=== PATIENT | female | born 1975 | race Caucasian/White ===

== ENCOUNTER → 2016-10-21 | Outpatient (CLI) | payer BC ==
--- NOTE | 2016-10-22 14:45 | Diagnostic Imaging Report ---
Thyroid scan and uptake Technique: After the oral administration of 200 ?Ci of I-123 capsule, 4 hour and 24-hour uptake is measured and plantar images over the thyroid gland obtained. Indication: Goiter FINDINGS: Thyroid uptake at 4 hours is 10 %, and the at 24 hours is 26 %. Planar images demonstrate no evidence of a cold nodule. IMPRESSION: Normal thyroid uptake and scan. Dictated by: Dictated on workstation # [id number]
== END ==
LOC: CARD 10:52
PROVIDERS: ATTEND Nurse Practitioner Family
DX: E05.00 Thyrotoxicosis with diffuse goiter without thyrotoxic crisis or storm (principal)
CPT/HCPCS: 78014